=== PATIENT | female | born 1990 | race Caucasian/White ===

== ENCOUNTER 2017-05-16 22:51 | Emergency (ER) | payer MEDICAID | END 2017-05-17 00:15 | disposition left against medical advice (07) | LOC: ER 23:27 | DX: M54.9 Dorsalgia, unspecified (principal); Z53.21 Procedure and treatment not carried out due to patient leaving prior to being seen by health care provider ==

== ENCOUNTER 2017-07-29 08:20 | Observation (INO) | payer MEDICAID ==
[~2017-07-29] VITALS: Ht 157.5 cm; Wt 81.6 kg
== END 2017-07-29 10:57 | disposition home or self-care (01) ==
LOC: L&D 08:30 → EDSTATUS 08:41 → L&D 09:37
PROVIDERS: ADMIT Specialist; ATTEND Specialist
DX: O99.89 Other specified diseases and conditions complicating pregnancy, childbirth and the puerperium (principal); M54.5 Low back pain; Z3A.20 20 weeks gestation of pregnancy
CPT/HCPCS: 76805; 99281; G0378

== ENCOUNTER 2017-09-03 17:24 | Emergency (ER) | payer MEDICAID | END 2017-09-03 19:08 | disposition left against medical advice (07) | LOC: ER 18:37 | DX: R42 Dizziness and giddiness (principal); Z53.21 Procedure and treatment not carried out due to patient leaving prior to being seen by health care provider ==